=== PATIENT | male | born 1980 | race Caucasian/White ===

== ENCOUNTER → 2024-03-18 | Outpatient (CLI) | payer BC, SELFPAY ==
--- NOTE | 2024-03-18 14:54 | XR_ITS ---
Examination: PA lateral chest 2 views TECHNIQUE: Upright PA lateral chest 2 views Exam date and time: March 18, 2024 1505 hours INDICATIONS: Diagnosis left renal cell carcinoma FINDINGS: Normal heart size No pneumonia or pulmonary edema or pulmonary nodules depicted Moderate thoracic dextroscoliosis IMPRESSION: No active disease
[2024-03-18 16:12] LABS: Prostate Specific Antigen 0.52 ng/mL (0-4.00)
== END | disposition home or self-care (01) ==
LOC: CDIM 14:49 → COPL 15:10
PROVIDERS: PCP Family Medicine; Referring Provider Urology; Visit Provider Radiology Diagnostic Radiology
DX: C64.2 Malignant neoplasm of left kidney, except renal pelvis (principal); Z12.5 Encounter for screening for malignant neoplasm of prostate
CPT/HCPCS: 36415; 71046; 84153

== ENCOUNTER → 2024-03-18 | Outpatient (BNVA) | payer BC, SELFPAY | END | disposition home or self-care (01) | PROVIDERS: PCP Family Medicine; Referring Provider Family Medicine; Visit Provider Urology | DX: N40.1 Benign prostatic hyperplasia with lower urinary tract symptoms (principal); R39.12 Poor urinary stream | CPT/HCPCS: 51741; 51798 ==

== ENCOUNTER → 2024-09-20 | Outpatient (CLI) | payer SELFPAY ==
--- NOTE | 2024-09-20 15:30 | XR_ITS ---
Examination: CT abdomen, without intravenous contrast. CT pelvis, without intravenous contrast. CT abdomen, with intravenous contrast. CT pelvis, with intravenous contrast. 2-D sagittal coronal reconstructions. Date and time of exam:September 20, 2024 1612 hours Comparison February 05, 2023 INDICATIONS: Diagnosis malignant neoplasm left kidney post partial nephrectomy restaging CTDI: vol (mGy) 26.5 DLP: (mGycm) 1000 Technique: Multiple 3.0 axial images of the abdomen and pelvis without intravenous contrast, 3.0 mm slice thickness. Multiple 3.0 postcontrast images abdomen and pelvis also obtained, post intravenous injection 30 cc Isovue 300 2-D sagittal and coronal reconstructions. Low dose protocols were performed. One or more of the following dose reduction techniques were used; automated exposure control, adjustment of the mA and/or KV according to patient size, use of iterative reconstruction technique. Findings: 4 mm pulmonary nodule right lower lobe 2 mm pulmonary nodule left lower lobe No interval liver or splenic lesions No gallstones No pancreatic or adrenal mass No renal or ureteral calculi, no hydronephrosis, partial left colectomy Aorta normal size 8 mm fat-containing umbilical hernia No pericecal inflammatory change,. No interval abdominal or pelvic lymphadenopathy Urinary bladder intact IMPRESSION: No interval recurrent tumor or metastatic disease in the abdomen and pelvis There are subcentimeter noncalcified pulmonary nodules in the lower lung zones, recommend CT chest without contrast
== END | disposition home or self-care (01) ==
PROVIDERS: Referring Provider Physician Assistant; Visit Provider Urology
DX: R91.8 Other nonspecific abnormal finding of lung field (principal); C64.2 Malignant neoplasm of left kidney, except renal pelvis
CPT/HCPCS: 74178; A4649; Q9967